=== PATIENT | female | born 1945 | race American Indian/Alaskan Native ===

== ENCOUNTER 2016-07-24 09:56 | Emergency (ER) | payer MEDICARE ==
--- NOTE | 2016-07-24 11:32 | Emergency Department Report ---
Chief Complaint: Extremity Injury, Lower Stated Complaint: RT HIP PAIN/UNABLE TO MOVE LEG Time Seen by Provider: 07/24/16 11:28 - HPI History of Present Illness: 71 year-old female presents to ED complaining of right eye E inguinal pain and anterior thigh pain 2 days. Pain starts in greater area close anterior to upper thigh. Patient states she did not injure her thigh trauma. Patient states pain is worsened with movement of that right leg. She denies fevers/ chills//abdominalpain/chestpainorproblems. - ROS Review of Systems: As noted in HPI - Exam Vital Signs: Vital Signs 07/24/16 10:32 Temperature 99.4 F Pulse Rate 81 Respiratory 19 Rate Blood Pressure 134/76 O2 Sat by Pulse 98 Oximetry Physical Exam: GENERAL: Alert and oriented x3, no apparent distress, Normal Gait, atraumatic. LUNGS: Symetrical with respiration, No wheezing, no rales or crackles, CTAB. HEART: S1, S2 present, regular rate and rhythm without murmur, no rubs, no gallops. EXTREMITIES/MUSCULOSKELETAL: No cyanosis, clubbing, rash, lesions or edema. Full ROM bilaterally. No calf tenderness bilaterally MSE screening note: Focused history and physical exam performed. Due to findings the following was ordered: ED Medical Decision Making - Lab Data Result diagrams: 07/24/16 11:58 07/24/16 11:58 - Medical Decision Making Labs ordered. To be seen by ED physician. ED Disposition for MSE Condition: Stable
[2016-07-24 12:00] LABS: Bacteria,Urine 1+ /HPF (Negative); Bilirubin,Urine NEG (Negative); Blood,Urine NEG (Negative); Ketones,Urine NEG (Negative); Leukocyte Esterase,Urine TR (Negative); Mucus,Urine 3+ /HPF; Nitrite,Urine NEG (Negative)
[2016-07-24 12:07] LABS: Basophils % (Auto) 0.5 % (0.0-1.8); Eosinophils % (Auto) 0.1 % (0.0-4.3); Hemoglobin 12.8 gm/dl (10.1-14.3); Mean Corpuscular HGB Conc 33 % (30-34); Mean Corpuscular Hemoglobin 28 pg (28-32); Mean Corpuscular Volume 87 fl (79-97); Platelet Count 258 K/mm3 (140-440); White Blood Count 15.1 K/mm3 (4.5-11.0)
[2016-07-24 12:29] LABS: Anion Gap 18 mmol/L; BUN/Creatinine Ratio 15.71; Blood Urea Nitrogen 11 mg/dL (7-17); Calcium 9.3 mg/dL (8.4-10.2); Carbon Dioxide 26 mmol/L (22-30); Chloride 96.9 mmol/L (98-107); Glucose 162 mg/dL (65-100); Potassium 4.3 mmol/L (3.6-5.0); Sodium 137 mmol/L (137-145)
[2016-07-24] MEDS ORDERED: TORADOL IM ONE (17:12)
--- NOTE | 2016-07-24 17:12 | Emergency Department Report ---
HPI - General Chief Complaint: Extremity Injury, Lower Time Seen by Provider: 07/24/16 11:28 - HPI HPI: This is a 71-year-old Afro[place] female presents the emergency department from home with complaint of right lower extremity pain from the groin down to the knee. This is more of a acute on chronic condition as it is been going on for the past few weeks but severely worsened this morning. She has no pain when she is lying still but with any type of movement or bearing weight the pain increases and she says she is unable to walk today. She denies any trauma to this area. She did not take anything until she got to the emergency department and then took one of her 's Ultram and muscle relaxers with some relief. She has a history of arthritis, diabetes, hypothyroidism area at her primary care doctor is Dr. Tobias but she has not seen them regarding the symptoms. She denies any skin color change or any swelling. No recent travel or sick contacts at home. ED Past Medical Hx - Past Medical History Hx Diabetes: Yes Additional medical history: HYPOTHYROID - Surgical History Hx Cholecystectomy: Yes Additional Surgical History: TUBAL LIGATION - Social History Smoking Status: Current Every Day Smoker Substance Use Type: None - Medications Home Medications: Home Medications Medication Instructions Recorded Confirmed Last Taken Type HYDROcodone/APAP 5-325 [[place] 1 each PO Q6HR PRN #10 tablet 07/24/16 Unknown Rx 5/325] ED Review of Systems ROS: Stated complaint: RT HIP PAIN/UNABLE TO MOVE LEG Other details as noted in HPI Comment: All other systems reviewed and negative Constitutional: denies: chills, fever Eyes: denies: eye pain, eye discharge, vision change ENT: denies: ear pain, throat pain Respiratory: denies: cough, shortness of breath, wheezing Cardiovascular: denies: chest pain, palpitations Gastrointestinal: denies: abdominal pain, nausea, diarrhea Genitourinary: denies: urgency, dysuria, discharge Musculoskeletal: arthralgia, myalgia. denies: back pain, joint swelling Skin: denies: rash, lesions Neurological: denies: headache, numbness, paresthesias Physical Exam - Physical Exam Vital Signs: Vital Signs 07/24/16 10:32 Temperature 99.4 F Pulse Rate 81 Respiratory 19 Rate Blood Pressure 134/76 O2 Sat by Pulse 98 Oximetry Physical Exam: GENERAL: The patient is well-developed well-nourished. HEENT: Normocephalic. Atraumatic. Extraocular motions are intact. Patient has moist mucous membranes. Pupils equal reactive to light bilaterally. NECK: Supple. Trachea is midline. CHEST/LUNGS: Clear to auscultation. There is no respiratory distress noted. HEART/CARDIOVASCULAR: Regular. There is no tachycardia. There is no gallop rub or murmur. ABDOMEN: Abdomen is soft, nontender. Patient has normal bowel sounds. There is no abdominal distention. SKIN: Skin is warm and dry. NEURO: The patient is awake, alert, and oriented. The patient is cooperative. The patient has no focal neurologic deficits. The patient has normal speech. MUSCULOSKELETAL: There is no tenderness or deformity. Unable to reproduce patient's pain to palpation but I am able to reproduce it with leg extension and hip flexion. Patient has some decreased range of motion of the right lower semis secondary to pain. There is no evidence of acute injury. Pedal pulses + 2 over 4 bilaterally. ED Course Vital Signs 07/24/16 10:32 Temperature 99.4 F Pulse Rate 81 Respiratory 19 Rate Blood Pressure 134/76 O2 Sat by Pulse 98 Oximetry ED Medical Decision Making - Lab Data Result diagrams: 07/24/16 11:58 07/24/16 11:58 - Radiology Data Radiology results: report reviewed, image reviewed interpreted by me: X-ray of the right femur does not show any fracture, dislocation or any acute process. Right lower extremity venous Doppler is negative for any acute DVT. - Medical Decision Making 71-year-old female presents the emergency department with acute on chronic right lower extremity pain and groin pain. The patient has absolutely 0 pain when she is laying still. The pain occurs when she moves the right lower extremity or tries to bear weight. Despite the fact that there is no swelling or skin color change, a venous Doppler was done of the right lower extremity to rule out DVT and there was no DVT. An x-ray was done of the right femur to show both hip and the knee and thigh but there was no osseous abnormalities, fracture, dislocation or any acute process. Patient was given a shot of Toradol with only mild relief. The only lab abnormality for the patient was a mild to moderate leukocytosis of 15,000. Otherwise there was no significant electrolyte abnormalities, renal insufficiency, glucose abnormalities or signs of acute inflammation. I have a low suspicion that there would be something significant going on at the patient has 0 pain when she is lying still but I still offered to do a CT scan of the pelvis, however the patient and her family declined at this point. They would rather discharge home to follow-up with Dr. okeefe. Patient was given some small amount of pain medication for home. She will return to the ER with any worsening of her symptoms or any acute distress. - Differential Diagnosis DVT, malignancy, occult fracture, neuropathy, radiculopathy Critical Care Time: No Critical care attestation.: If time is entered above; I have spent that time in minutes in the direct care of this critically ill patient, excluding procedure time. ED Disposition Clinical Impression: Right leg pain, Right groin pain Disposition: DISCHARGED TO HOME OR SELFCARE Is pt being admited?: No Condition: Stable Instructions: Lumbar Radiculopathy (ED), Arthralgia (ED) Additional Instructions: Please follow-up with your primary care doctor in the next few days. I referral for a local orthopedist, Dr. Garnica, in order to follow-up regarding your knee and leg pain. Return to the emergency department with any worsening of your symptoms, inability to complete your activities of daily living due to your symptoms, or any acute distress. You've been prescribed a medication that is sedating. Therefore this medication cannot be mixed with alcohol, or taken prior to driving, working, or being responsible for children. Prescriptions: HYDROcodone/APAP 5-325 [[place] 5/325] 1 each PO Q6HR PRN #10 tablet PRN Reason: Pain Referrals: HANNAH BROOKS MD [Primary Care Provider] - 3-5 Days FAMILIA GARNICA MD [Staff Physician] - 3-5 Days Time of Disposition: 18:35
[2016-07-24 18:58] VITALS: BP 119/68
--- NOTE | 2016-07-25 07:49 | Vascular Lab Report ---
Right Lower Extremity Venous Duplex Study: Reason for Exam: Right leg pain. Comments on the Right: All veins visualized are freely compressible without evidence of internal echogenicity. Flow is spontaneous and phasic throughout. No evidence of acute or chronic thrombus is seen in any of the vessels visualized. 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 Comments on the Left: A limited duplex study was done of the proximal veins of the left lower extremity. All veins visualized are freely compressible without evidence of internal echogenicity. Flow is spontaneous and phasic throughout. No evidence of acute or chronic thrombus is seen in any of the vessels visualized. Impression: No evidence of acute or chronic deep venous thrombosis in the right lower extremity.
--- NOTE | 2016-07-25 08:43 | XRay Report ---
Right femur: Pain. There is some bony proliferation along the lateral superior margin of the acetabulum with what appears to the mild compromise of the lateral superior acetabular joint space. The femoral head is unremarkable as is the remainder of the femur. Bones are well-mineralized. Of interest is a focal soft tissue calcification along the lateral distal condyle and what may represent retro patella chondromalacia. Impressions: Degenerative changes involving the hip and knee regions with no acute findings.
== END 2016-07-24 18:58 | disposition home or self-care (01) ==
LOC: ED 09:56
DX: M79.604 Pain in right leg (principal); R10.30 Lower abdominal pain, unspecified; E11.9 Type 2 diabetes mellitus without complications; E03.9 Hypothyroidism, unspecified; F17.200 Nicotine dependence, unspecified, uncomplicated; Z90.49 Acquired absence of other specified parts of digestive tract; Z98.51 Tubal ligation status
CPT/HCPCS: 36415; 73552; 80048; 81001; 85025; 93971; 96372; 99283; J1885

== ENCOUNTER 2017-11-20 06:22 | Day surgery (SDC) | payer MEDICARE ==
[2017-11-20] MEDS ORDERED: ECOTRIN PO ONE (07:06)
[2017-11-20 07:49] LABS: INR 1.15 (0.87-1.13)
[2017-11-20 07:50] LABS: BUN/Creatinine Ratio 23; Blood Urea Nitrogen 9 mg/dL (7-17); Calcium 9.2 mg/dL (8.4-10.2); Hemolysis Index 59
[2017-11-20 07:57] LABS: Hematocrit 31.3 % (30.3-42.9); Hemoglobin 10.1 gm/dl (10.1-14.3); Mean Corpuscular HGB Conc 32 % (30-34); Mean Corpuscular Hemoglobin 26 pg (28-32); Mean Corpuscular Volume 79 fl (79-97); Platelet Count 344 K/mm3 (140-440); Red Blood Count 3.95 M/mm3 (3.65-5.03); Red Cell Distribution Width 16.3 % (13.2-15.2)
[2017-11-20] MEDS ORDERED: NACL 0.9% 500 ML 500 ML IV SCH (08:00)
[2017-11-20] MEDS ORDERED: HEPARIN/NS 5000 UNIT/500ML(CATH LAB) 1,000 ML IR ONE (08:28)
[2017-11-20 08:35] LABS: Basophils % (Manual) 0 % (0.0-1.8); Platelet Estimate Consistent w Auto; Total Cells Counted 100
[2017-11-20] MEDS: VERSED ONE ×2 (09:11→09:16)
[2017-11-20] MEDS: SUBLIMAZE ONE ×2 (09:12→09:16)
[2017-11-20] MEDS: XYLOCAINE 2% INFILTRATI ONE ×2 (09:12→09:16)
[2017-11-20] MEDS: HEPARIN 10,000 UNITS/10 ML ONE ×2 (09:12→09:17)
[2017-11-20] MEDS: CALAN ONE ×2 (09:12→09:17)
[2017-11-20] MEDS: NITROGLYCERIN SYRINGE 3 ML ONE ×2 (09:13→09:17)
--- NOTE | 2017-11-20 10:24 | Discharge Summary ---
Short Stay Discharge Plan Activity: advance as tolerated Weight Bearing Status: Full Weight Bearing Diet: low fat, low cholesterol, low salt, diabetic Wound: keep clean and dry Special Instructions: no heavy lifting (3 days), hold Metformin (48 hrs only) Follow up with: HANNAH BROOKS MD [Primary Care Provider] - 7 Days CHAPO ARGUETA MD [Staff Physician] - 7 Days
--- NOTE | 2017-11-20 10:35 | Cardiac Catherization Report ---
CARDIAC CATHETERIZATION REASON FOR PROCEDURE: The patient is a 72-year-old woman who was hospitalized for chest pain, and ECG showed a new biphasic anterior T waves, prompting a recommendation for a cardiac catheterization. PROCEDURE: 1. Left heart catheterization. 2. Selective left and right coronary angiography. 3. Left ventricular catheterization and angiography. 4. Sedation time start 914, end 932. DESCRIPTION OF PROCEDURE: The patient was prepped and draped in a sterile fashion after informed consent. The right radial cath site was prepped and draped after a negative Kevin's test. The right radial artery was entered using Seldinger technique followed by placement of a 6-Kinyarwanda hydrophilic sheath. Routine radial cocktail was administered via the sheath. A #3.5 left Tex catheter was used for left coronary angiography. A #4 right Tex was used for right coronary angiography. The pigtail catheter was used for left ventricular angiography. The catheters were removed, sheath removed, and hemostasis achieved using a TR band. The patient was returned to the post-procedure unit in stable condition. There were no complications. FINDINGS: HEMODYNAMICS: Left ventricle end diastolic pressure was 16. Ascending aortic pressure was 164/69. There was no significant pressure gradient on pullback across the aortic valve. CORONARY ANGIOGRAPHY: Left main coronary artery was angiographically normal. The left anterior descending artery contained a long segment of diffuse mild atherosclerosis of its mid segment. There was an up to 50% luminal stenosis within this segment. The circumflex artery and its obtuse marginal branches contained mild irregularities. The right coronary artery was dominant. This vessel contained mild irregularities of the mid and distal AV groove segments. There was normal left ventricular systolic function, ejection fraction 60%. CONCLUSION: 1. Mild nonobstructive atherosclerosis as above. 2. Normal left ventricular systolic function, ejection fraction 60%. RECOMMENDATION: Risk factor modification and medical therapy. JOB# [id number] CA/NTS
[2017-11-20] MEDS ORDERED: NACL 0.9% 1000 ML 1,000 ML IV SCH (11:00)
[2017-11-20 15:14] VITALS: BP 116/65
== END 2017-11-20 14:30 | disposition home or self-care (01) ==
LOC: CATHLABREC 06:22
PROVIDERS: ATTEND Internal Medicine Cardiovascular Disease
DX: I25.10 Atherosclerotic heart disease of native coronary artery without angina pectoris (principal); I11.0 Hypertensive heart disease with heart failure; I50.9 Heart failure, unspecified; E11.9 Type 2 diabetes mellitus without complications; E03.9 Hypothyroidism, unspecified; M19.90 Unspecified osteoarthritis, unspecified site; G47.30 Sleep apnea, unspecified; F17.210 Nicotine dependence, cigarettes, uncomplicated; Z79.82 Long term (current) use of aspirin; Z79.84 Long term (current) use of oral hypoglycemic drugs; Z79.899 Other long term (current) drug therapy; Z90.49 Acquired absence of other specified parts of digestive tract; Z98.890 Other specified postprocedural states
CPT/HCPCS: 36415; 80048; 85007; 85025; 85610; 93005; 93010; 93458; 99156; C1769; C1894; J1644; J2250; J3010; J7040; Q9967